=== PATIENT | female | born 1995 | race Caucasian/White ===

== ENCOUNTER → 2021-10-01 09:54 | Outpatient (CLI) | payer BC, SELFPAY ==
--- NOTE | ~2021-10-01 | US_ITS ---
US breast BI complete DATE: 10/01/2021 10:39 INDICATION: Bilateral breast pain TECHNIQUE: Real-time imaging of both breasts including all 4 quadrants and subareolar areas COMPARISON: None FINDINGS: No suspicious mass or shadowing or cyst or other significant sonographic finding is noted i n either breast. IMPRESSION: BI-RADS Category 1: Negative Reviewed, dictated and finalized at [facility]. Reviewed, dictated and finalized at [facility].
== END ==
PROVIDERS: PCP Nurse Practitioner; Visit Provider Nurse Practitioner
DX: N64.4 Mastodynia (principal)
CPT/HCPCS: 76641